=== PATIENT | male | born 1970 | race Caucasian/White ===

== ENCOUNTER 2017-08-05 08:05 | Inpatient (IN) | payer BC, OTHER ==
[2017-08-05] MEDS ORDERED: MAGNESIUM HYDROXIDE 2,400 MG/30 ML ORAL.SUSP. PO (08:45)
[2017-08-05] MEDS ORDERED: 0.9 % SODIUM CHLORIDE 10 ML DISP.SYRIN. IV (08:45)
[2017-08-05] MEDS ORDERED: ONDANSETRON PF 4 MG/2 ML VIAL. IV (08:45)
[2017-08-05] MEDS ORDERED: MEROPENEM 1 GM in IV NORMAL SALINE 100ML 100 ML IV (09:30)
[2017-08-05] MEDS: FAMOTIDINE 20 MG/2 ML VIAL IVP ×2 (09:47→20:43)
[2017-08-05] MEDS: LACTOBACILLUS RHAMNOSUS GG 1 CAPSULE. PO ×2 (09:50→20:44)
[2017-08-05] MEDS: VANCOMYCIN 2 GM in IV NORMAL SALINE 500ML BAG 500 ML IV ×2 (10:00→10:40)
[2017-08-05 10:22] LABS: CREATININE 0.8 mg/dL (0.7-1.3)
[2017-08-05 10:22] LABS: GFR 103.6
[2017-08-05] MEDS: POTASSIUM CL 40MEQ D5-0.45NACL 1,000 ML IV (10:39)
[2017-08-05] MEDS: FLUCONAZOLE 100MG/50ML PREMIX 50 ML IV (10:40)
[2017-08-05] MEDS: MEROPENEM IV Push 1 GM VIAL. IVP ×3 (11:36→21:42)
[2017-08-05] MEDS: HYDROmorphone 2 MG/ML VIAL IV ×2 (13:29→19:26)
[2017-08-05 14:03] LABS: LIPASE 221 U/L (73-393)
[2017-08-05 14:08] LABS: VANC TR 13.8 mcg/mL (10.0-20.0)
[2017-08-05] MEDS: VANCOMYCIN PER PHARMACY MC (15:30)
[2017-08-05] MEDS: VANCOMYCIN 2 GM in IV DEXTROSE 5 %-0.2 % NACL 500 ML IV (16:49)
[2017-08-05] MEDS: ACETAMINOPHEN 325 MG TABLET. PO (19:32)
[2017-08-06] MEDS: VANCOMYCIN 2 GM in IV DEXTROSE 5 %-0.2 % NACL 500 ML IV ×2 (00:30→08:28)
[2017-08-06] MEDS: HYDROmorphone 2 MG/ML VIAL IV ×2 (02:50→22:12)
[2017-08-06] MEDS: MEROPENEM IV Push 1 GM VIAL. IVP ×3 (05:34→21:50)
[2017-08-06 06:05] LABS: BASO # 0.1 x10^3/uL (0.0-0.2); BASO % 1 % (0-3); EOS # 0.4 x10^3/uL (0.0-0.7); EOS % 3 % (0-3); HEMOGLOBIN 11.4 g/dL (13.0-17.5); LYMPH # 1.3 x10^3/uL (1.0-4.8); LYMPH % 7 % (24-48); MEAN CORPUSCULAR HEMOGLOBIN 26 pg (25-35); MEAN CORPUSCULAR HGB CONC 33 g/dL (31-37); MEAN CORPUSCULAR VOLUME 81 fL (79-100); MONO # 1.1 x10^3/uL (0.0-1.1); MONO % 7 % (0-9); NEUT # 14.4 x10^3uL (1.8-7.7); NEUT % 83 % (31-73); PLATELET COUNT 230 x10^3/uL (140-400); RED BLOOD COUNT 4.34 x10^6/uL (4.30-5.70); RED CELL DISTRIBUTION WIDTH 13.7 % (11.5-14.5); WHITE BLOOD COUNT 17.4 x10^3/uL (4.0-11.0)
[2017-08-06 06:10] LABS: ADD MAN DIFF? YES
[2017-08-06 06:52] LABS: ALBUMIN 2.2 g/dL (3.4-5.0); ALBUMIN/GLOBULIN RATIO 0.5 (1.0-1.7); ALK PHOS 79 U/L (46-116); ALT (SGPT) 25 U/L (16-63); ANION GAP 11 (6-14); AST (SGOT) 20 U/L (15-37); BLOOD UREA NITROGEN 8 mg/dL (8-26); BUN/CREATININE RATIO 10 (6-20); CALCIUM 8.3 mg/dL (8.5-10.1); CARBON DIOXIDE 27 mmol/L (21-32); CHLORIDE 102 mmol/L (98-107); CREATININE 0.8 mg/dL (0.7-1.3); GFR 103.6; GLUCOSE 134 mg/dL (70-99); LIPASE 191 U/L (73-393); POTASSIUM 3.3 mmol/L (3.5-5.1); SODIUM 140 mmol/L (136-145); TOTAL BILIRUBIN 0.8 mg/dL (0.2-1.0); TOTAL PROTEIN 6.6 g/dL (6.4-8.2)
[2017-08-06 07:03] LABS: % EOS 1 % (0-5); % LYMPHS 5 % (24-48); % MONOS 2 % (0-10); % SEGS 92 % (35-66); PLT ESTIMATE ADEQUATE (ADEQUATE)
[2017-08-06] MEDS: FLUCONAZOLE 100MG/50ML PREMIX 50 ML IV ×2 (08:28→09:00)
[2017-08-06] MEDS: FAMOTIDINE 20 MG/2 ML VIAL IVP ×2 (08:29→21:18)
[2017-08-06] MEDS: LACTOBACILLUS RHAMNOSUS GG 1 CAPSULE. PO ×2 (08:30→21:19)
[2017-08-06] MEDS: GADOBUTROL 7.5 MMOL/7.5 ML VIAL IV ×2 (12:51)
[2017-08-06] MEDS: FUROSEMIDE 40 MG/4 ML VIAL. IVP (15:24)
[2017-08-06] MEDS: POTASSIUM CHLORIDE 20 MEQ TABLET.ER. PO (21:19)
[2017-08-07] MEDS: MEROPENEM IV Push 1 GM VIAL. IVP ×2 (05:44→13:45)
[2017-08-07 05:51] LABS: HEMOGLOBIN 11.4 g/dL (13.0-17.5); MEAN CORPUSCULAR HEMOGLOBIN 26 pg (25-35); MEAN CORPUSCULAR HGB CONC 33 g/dL (31-37); MEAN CORPUSCULAR VOLUME 80 fL (79-100); PLATELET COUNT 228 x10^3/uL (140-400); RED BLOOD COUNT 4.36 x10^6/uL (4.30-5.70); RED CELL DISTRIBUTION WIDTH 13.4 % (11.5-14.5); WHITE BLOOD COUNT 13.1 x10^3/uL (4.0-11.0)
[2017-08-07 06:37] LABS: ALBUMIN 2.1 g/dL (3.4-5.0); ALBUMIN/GLOBULIN RATIO 0.5 (1.0-1.7); ALK PHOS 74 U/L (46-116); ALT (SGPT) 26 U/L (16-63); ANION GAP 8 (6-14); AST (SGOT) 21 U/L (15-37); BLOOD UREA NITROGEN 7 mg/dL (8-26); BUN/CREATININE RATIO 10 (6-20); CALCIUM 8.3 mg/dL (8.5-10.1); CARBON DIOXIDE 30 mmol/L (21-32); CHLORIDE 104 mmol/L (98-107); CREATININE 0.7 mg/dL (0.7-1.3); GFR 120.9; GLUCOSE 118 mg/dL (70-99); LIPASE 217 U/L (73-393); POTASSIUM 3.3 mmol/L (3.5-5.1); SODIUM 142 mmol/L (136-145); TOTAL BILIRUBIN 0.6 mg/dL (0.2-1.0); TOTAL PROTEIN 6.3 g/dL (6.4-8.2)
[2017-08-07] MEDS: POTASSIUM CHLORIDE 20 MEQ TABLET.ER. PO ×4 (08:57→21:22)
[2017-08-07] MEDS: FAMOTIDINE 20 MG/2 ML VIAL IVP ×2 (08:57→21:21)
[2017-08-07] MEDS: LACTOBACILLUS RHAMNOSUS GG 1 CAPSULE. PO ×2 (08:57→21:21)
[2017-08-07] MEDS: FUROSEMIDE 40 MG/4 ML VIAL. IVP (08:59)
[2017-08-07] MEDS: FLUCONAZOLE 100MG/50ML PREMIX 50 ML IV (09:00)
[2017-08-07] MEDS: ALTEPLASE 2 MG VIAL INT CAT (17:10)
[2017-08-07] MEDS: HYDROmorphone 2 MG/ML VIAL IV (22:43)
[2017-08-08 05:24] LABS: HEMATOCRIT 35.8 % (39.0-53.0); HEMOGLOBIN 11.5 g/dL (13.0-17.5); MEAN CORPUSCULAR HEMOGLOBIN 26 pg (25-35); MEAN CORPUSCULAR HGB CONC 32 g/dL (31-37); MEAN CORPUSCULAR VOLUME 80 fL (79-100); PLATELET COUNT 246 x10^3/uL (140-400); RED CELL DISTRIBUTION WIDTH 13.7 % (11.5-14.5); WHITE BLOOD COUNT 11.9 x10^3/uL (4.0-11.0)
[2017-08-08 05:37] LABS: ANION GAP 7 (6-14); BLOOD UREA NITROGEN 9 mg/dL (8-26); CALCIUM 8.1 mg/dL (8.5-10.1); CARBON DIOXIDE 27 mmol/L (21-32); CHLORIDE 105 mmol/L (98-107); CREATININE 0.8 mg/dL (0.7-1.3); GFR 103.6; GLUCOSE 119 mg/dL (70-99); MAGNESIUM 2.2 mg/dL (1.8-2.4); POTASSIUM 3.9 mmol/L (3.5-5.1); SODIUM 139 mmol/L (136-145)
[2017-08-08] MEDS: FLUCONAZOLE 100MG/50ML PREMIX 50 ML IV (08:22)
[2017-08-08] MEDS: FAMOTIDINE 20 MG/2 ML VIAL IVP (08:23)
[2017-08-08] MEDS: LACTOBACILLUS RHAMNOSUS GG 1 CAPSULE. PO (08:23)
[2017-08-08] MEDS: FUROSEMIDE 40 MG/4 ML VIAL. IVP (08:23)
[2017-08-08] MEDS: POTASSIUM CHLORIDE 20 MEQ TABLET.ER. PO (08:24)
== END 2017-08-08 12:48 | disposition home or self-care (01) | DRG 871 ==
LOC: 4 NORTH 08:05
PROVIDERS: Internal Medicine
DX: A41.9 Sepsis, unspecified organism (principal); K85.90 Acute pancreatitis without necrosis or infection, unspecified; E66.01 Morbid (severe) obesity due to excess calories; N28.1 Cyst of kidney, acquired; K76.0 Fatty (change of) liver, not elsewhere classified; K81.9 Cholecystitis, unspecified; K86.1 Other chronic pancreatitis; J98.11 Atelectasis; Z68.44 Body mass index [BMI] 60.0-69.9, adult; B95.2 Enterococcus as the cause of diseases classified elsewhere; E87.6 Hypokalemia; G47.33 Obstructive sleep apnea (adult) (pediatric); F10.21 Alcohol dependence, in remission; I10 Essential (primary) hypertension; K21.9 Gastro-esophageal reflux disease without esophagitis; R09.02 Hypoxemia; Z90.49 Acquired absence of other specified parts of digestive tract
CPT/HCPCS: 36415; 74182; 80048; 80053; 80202; 82565; 83690; 83735; 85007; 85025; 85027; A9585; J1170; J1450; J1940; J2185; J2997; J3370; J7040; J7042; S0028